=== PATIENT | female | born 1995 | race African-American/Black ===

== ENCOUNTER 2016-11-20 15:27 | Emergency (ER) | payer OTHER ==
[~2016-11-20 15:27] MED LIST: ORUDIS75 M1 PO
== END 2016-11-20 16:24 | disposition home or self-care (01) ==
LOC: CFTX 15:27
DX: S91.342A Puncture wound with foreign body, left foot, initial encounter (principal); W25.XXXA Contact with sharp glass, initial encounter; Y92.009 Unspecified place in unspecified non-institutional (private) residence as the place of occurrence of the external cause; F17.210 Nicotine dependence, cigarettes, uncomplicated; Z23 Encounter for immunization
CPT/HCPCS: 90471; 90715; 99283

== ENCOUNTER 2017-03-28 10:47 | Emergency (ER) | payer OTHER ==
--- NOTE | ~2017-03-28 | CR127 ---
[facility] A Service of [facility] RADIOLOGY TEXT RESULTS PATIENT: CARLITA OLIVARES LOCATION: [place] : 95 UNIT #: [id number] AGE: [address]: Uzma Quiroz SEX: F ORDER DR: [id number] [facility]. [place], [place] [address] [id number] MR#: [id number] Acc #: [id number] NAME: CARLITA OLIVARES : 1995 SEX: F STUDY DATE/TIME: 03/28/2017 11:25 UNIT: CFTX ROOM: STUDY DESCRIPTION: CR Foot Complete Min 3 View Rt Attending Physician: Uzma Quiroz Pa-C Ordering Physician: Ed Doctor [id number] [facility] Primary Care Physician: Morgan Villa M.D. MEDICAL IMAGING REPORT This report is preliminary unless electronic signature is present EXAM Right foot 3 views 03/28/2017 1125 hours HISTORY 21-year-old who stepped on glass today with possible foreign body in bottom of foot. Foot pain. COMPARISON None. FINDINGS AP, lateral and oblique views are performed with shielding of the abdomen. Patient declined pre-procedure test. There is no fracture, dislocation or radiopaque foreign body. No glass is seen in the foot. Accessory ossicle posterior to the talus is noted. IMPRESSION Negative right foot. There is no fracture, dislocation or radiopaque foreign body seen. Dictated by... Lilly Varma M.D. THIS IS AN ELECTRONICALLY VERIFIED REPORT Lilly Varma M.D. at 03/28/2017 2:30 PM TOMMY/sakshi TD: 03/28/2017 12:49 JOB #: [id number] MEDICAL IMAGING REPORT [facility] A Service [facility] RADIOLOGY TEXT RESULTS PATIENT: CARLITA OLIVARES LOCATION: [place] : 95 UNIT #: [id number] AGE: [address]: Uzma Quiroz SEX: F ORDER DR: Page 1 of 1 COPY
== END 2017-03-28 12:15 | disposition home or self-care (01) ==
LOC: CFTX 10:47 → CED 10:47 → CFTX 11:51
DX: S91.331A Puncture wound without foreign body, right foot, initial encounter (principal); F17.200 Nicotine dependence, unspecified, uncomplicated; X58.XXXA Exposure to other specified factors, initial encounter; Y92.009 Unspecified place in unspecified non-institutional (private) residence as the place of occurrence of the external cause
CPT/HCPCS: 73630; 99283

== ENCOUNTER 2017-05-21 11:03 | Emergency (ER) | payer OTHER ==
[~2017-05-21] VITALS: Ht 160 cm; Wt 81.6 kg
[2017-05-21 11:48] LABS: BASOPHIL% 0.3 % (0-2.5); EOSINOPHIL% 0.2 % (0.0-7.0); HEMATOCRIT 41.2 % (35.0-45.0); HEMOGLOBIN 13.6 gm/dL (12.0-16.0); LYMPHOCYTE# 1.1 X10e3 (1.0-3.5); LYMPHOCYTE% 7.8 % (17.0-45.0); MEAN CELL VOLUME 91.7 FL (83-96); MEAN CORPUSCULAR HEMOGLOBIN 30.3 PG (28-34); MEAN PLATELET VOLUME 7.2 FL (6.5-11.5); MONOCYTE# 0.9 X10e3 (0-1.0); MONOCYTE% 6.7 % (3.0-12.0); NEUTROPHIL# 11.6 X10e3 (1.5-7.1); PLATELET COUNT 244 X10e3 (140-420); RED BLOOD COUNT 4.49 X10e (3.90-5.30); RED CELL DISTRIBUTION WIDTH 12.1 % (11.0-15.5); WHITE BLOOD COUNT 13.7 X10e3 (4.0-10.5)
[2017-05-21 11:51] LABS: DIFF IND NO
[2017-05-21 12:01] LABS: URINE SOURCE CLEAN CATCH
[2017-05-21 12:06] LABS: URINE APPEARANCE CLOUDY; URINE BILIRUBIN NEG (NEG); URINE BLOOD 2+ (NEG); URINE COLOR YELLOW; URINE GLUCOSE NEG (NEG); URINE KETONE NEG (NEG); URINE LEUKOCYTE ESTERASE 3+ (NEG); URINE NITRATE POS (NEG); URINE PROTEIN 1+ (NEG); URINE SPECIFIC GRAVITY 1.015 (1.003-1.035)
[2017-05-21 12:09] LABS: CULTURE INDICATED? YES; URINE BACTERIA AUWI 4+ (NEGATIVE); URINE SQUAMOUS EPITHELIAL CELL OCC /[HPF]; UWBCS1 AUWI INNUM (0-5)
[2017-05-21 12:11] LABS: BUN/CREATININE RATIO 11.11; CALCIUM SERUM 9.3 mg/dL (8.4-10.2); CREATININE SERUM 0.9 mg/dL (0.6-1.4); POTASSIUM 3.9 mmol/L (3.5-5.1)
== END 2017-05-21 15:00 | disposition home or self-care (01) ==
LOC: CED 11:03
PROVIDERS: Emergency Medicine
DX: N30.00 Acute cystitis without hematuria (principal); F17.200 Nicotine dependence, unspecified, uncomplicated; Z87.440 Personal history of urinary (tract) infections
CPT/HCPCS: 36415; 80048; 81003; 84703; 85025; 87086; 87088; 87186; 96361; 96374; 96375; 99283; J0696; J1885; J2405